=== PATIENT | male | born 1970 | race Caucasian/White ===

== ENCOUNTER → 2020-09-22 13:39 | Outpatient (CLI) | payer BC, SELFPAY ==
--- NOTE | ~2020-09-22 | XR_ITS ---
EXAMINATION: XR sacrum coccyx min 2V DATE: 09/22/2020 14:03 INDICATION: Chronic coccygeal pain. TECHNIQUE: 3 views of the sacrum and coccyx were obtained. COMPARISON: Lumbar spine radiographs 11/27/2011 FINDINGS: Bone alignment is normal. No fracture. There is mild osteoarthritis of the sacroiliac joint s characterized by tiny marginal osteophytes. IMPRESSION: 1. Mild osteoarthritis of the sacroiliac joints. Reviewed, dictated and finalized at location A.
== END ==
PROVIDERS: PCP Family Medicine
DX: M53.3 Sacrococcygeal disorders, not elsewhere classified (principal); M47.898 Other spondylosis, sacral and sacrococcygeal region
CPT/HCPCS: 72220

== ENCOUNTER → 2020-11-07 16:13 | Outpatient (CLI) | payer BC, SELFPAY ==
--- NOTE | ~2020-11-07 | XR_ITS ---
XR finger 1st LT min 2V DATE: 11/07/2020 16:25 INDICATION: Left thumb pain TECHNIQUE: 3 views COMPARISON: None FINDINGS: No fracture or dislocation, periosteal reaction or bone destruction. Joint spaces are prese rved. No erosive changes. IMPRESSION: Negative Reviewed, dictated and finalized at location A. GATION TEACHER IMPRESSION: Negative
== END ==
PROVIDERS: PCP Family Medicine; Visit Provider Family Medicine
DX: M79.645 Pain in left finger(s) (principal)
CPT/HCPCS: 73140

== ENCOUNTER 2021-08-22 07:03 | Day surgery (SDC) | payer BC, SELFPAY ==
[2021-08-22 07:19] VITALS: BMI 29.6
[2021-08-22 07:46] VITALS: BP 152/91; PULSE 68; RESP 16; TEMP 36.4; O2SAT 100; BMI 29.0
[2021-08-22] MEDS: LACTATED RINGERS 1,000 ML 150 ML IV CONT (07:54)
--- NOTE | 2021-08-22 07:59 | WPDANESEPPF ---
Anes - Initial Pre Proc Eval Procedure: Operation Date: 08/22/21 07:00 Proposed Procedures p Screening Colonoscopy - Ming Cameron MD Date/Time: 08/22/21 07:59 Surgeon: Ming Cameron MD Pre Op Diagnosis: NEOPLASM SCREENING Patient Data Age: 51 Gender: M Height: 1.8 m Weight: 94.3 kg Last Vital Signs Temp 36.4 C 08/22/21 07:46 Pulse 68 08/22/21 07:46 Resp 16 08/22/21 07:46 BP 152/91 H 08/22/21 07:46 Pulse Ox 100 08/22/21 07:46 Allergies Allergy/AdvReac Type Severity Reaction Status Date / Time No Known Allergies Allergy Mild Verified 08/22/21 07:42 Home Medications Medication Instructions Recorded Confirmed Type losartan 50 mg tablet 100 mg PO DAILY #180 tablet 04/23/21 08/22/21 Rx Patient hx anesthesia problems: none Family hx anesthesia problems: none PMFSH Past Medical History Medical History (Updated 08/22/21 @ 08:00 by Feroz Dennis MD) Essential hypertension IFG (impaired fasting glucose) PENNY (obstructive sleep apnea) Family History Family History Father Hypertension Family history of coronary artery disease Sibling Hypertension Mother Family history of malignant neoplasm of breast in first degree relative Social History Social History (Updated 07/23/21 @ 16:32 by Rachel Christensen) Smoking status: Never smoker Second hand tobacco smoke exposure: No Alcohol intake: never Substance use: never Substance use type: does not use Living arrangements: with family Gender identity (if verbalized by the patient): Male Sexual Orientation (if Verbalized by the Patient): Straight or Heterosexual Spiritual care concerns: No Anes - Eval Final PreProcedure Day of Procedure 08/22/21 07:59 Patient weight: normal Heart: regular rate and rhythm Lungs: clear to auscultation and normal air movement Airway: Mallampati scale class II Neurological: alert and oriented Last oral intake: >/= 8 hours ASA classification: II Emergent: no Anesthetic plan: proceed Anesthesia type and monitoring: general GIVS Informed Consent: The patient's anesthetic plan and its attendant risks and benefits were discussed with the patient/family/POA. Questions were solicited and answers provided to the satisfaction of the patient/family/POA.
--- NOTE | 2021-08-22 08:12 | PM.HPGS ---
History of Present Illness History of Present Illness Consent: Risks, benefits, and alternatives have been discussed and questions answered. Patient agrees to proceed with procedure. Chief complaint: NEOPLASM SCREENING Narrative: Gregg Soto is a 51 year old male here for first screeninc colonoscopy Review of Systems Constitutional: Constitutional: Denies headache(s) and Denies weakness Eyes: Eyes: Denies blurry vision ENT: Reports Normal hearing present, Denies headache(s) and Denies neck pain Cardiovascular: Cardiovascular: Denies chest pain and Denies dyspnea Respiratory: Respiratory: Denies dyspnea Gastrointestinal: Gastrointestinal: Reports no additional gastrointestinal complaints Genitourinary: Genitourinary: Denies dysuria Musculoskeletal: Musculoskeletal: Denies neck pain Integumentary/Breasts: Skin/Breast: Denies dry skin Neurologic: Reports Normal hearing present, Denies headache(s) and Denies weakness Psychiatric: Psychiatric: Denies anxiety Endocrine: Endocrine: Denies change in body appearance Hematologic/Lymphatic: Hematologic/Lymphatic: Denies easy bleeding Allergic/Immunologic: Allergic/Immunologic: Denies urticaria [facility] Past Medical History Medical History (Updated 08/22/21 @ 08:13 by Ming Cameron MD) Colon cancer screening Essential hypertension IFG (impaired fasting glucose) PENNY (obstructive sleep apnea) Family History Family History Father Hypertension Family history of coronary artery disease Sibling Hypertension Mother Family history of malignant neoplasm of breast in first degree relative Social History Social History (Updated 07/23/21 @ 16:32 by Rachel Christensen) Smoking status: Never smoker Second hand tobacco smoke exposure: No Alcohol intake: never Substance use: never Substance use type: does not use Living arrangements: with family Gender identity (if verbalized by the patient): Male Sexual Orientation (if Verbalized by the Patient): Straight or Heterosexual Spiritual care concerns: No Meds Home Medications and Allergies Home Medications Medication Instructions Recorded Confirmed Type losartan 50 mg tablet 100 mg PO DAILY #180 tablet 04/23/21 08/22/21 Rx Allergies Allergy/AdvReac Type Severity Reaction Status Date / Time No Known Allergies Allergy Mild Verified 08/22/21 07:42 Vital Signs Vital Signs - 24 hr 08/22/21 07:46 Temperature 97.6 F Pulse Rate 68 Respiratory Rate 16 Blood Pressure 152/91 H Pulse Oximetry 100 Exam Const: General: comfortable and no acute distress HENMT: General nose exam: Normal nares present Eyes: General: appearance normal, both eyes and all related structures Neck: Neck: no JVD Resp: Auscultation: clear to auscultation bilaterally Cardio: Rate: regular rate Rhythm: regular rhythm GI: Inspection: non-distended GI Palp: Yes Soft to palpation Skin: General skin exam: normal color Neuro: General: gait normal Speech: normal speech Extrem: General: normal to inspection Psych: Mental Status: mental status grossly normal Assessment and Plan Assessment and plan (1) Colon cancer screening: Code(s): Z12.11 - Encounter for screening for malignant neoplasm of colon Status: Acute Assessment and Plan: colonoscopy
[2021-08-22 08:36] VITALS: BP 114/67; PULSE 63; RESP 14; O2SAT 98
[2021-08-22 08:46] VITALS: BP 108/69; PULSE 61; RESP 20; O2SAT 99
[2021-08-22 08:56] VITALS: BP 131/82; PULSE 68; RESP 15; O2SAT 100
== END 2021-08-22 09:06 | disposition home or self-care (01) ==
PROVIDERS: PCP Family Medicine; Visit Provider Internal Medicine Gastroenterology
PROC: 0DJD8ZZ Inspection of Lower Intestinal Tract, Via Natural or Artificial Opening Endoscopic (ICD-10-PCS; CPT 45378; principal; 2021-08-22 07:00)
DX: Z12.11 Encounter for screening for malignant neoplasm of colon (principal); K64.8 Other hemorrhoids; I10 Essential (primary) hypertension; G47.33 Obstructive sleep apnea (adult) (pediatric)
CPT/HCPCS: 45378; J2704; J7120

== ENCOUNTER → 2022-08-30 14:22 | Outpatient (CLI) | payer BC, SELFPAY ==
--- NOTE | ~2022-08-30 | XR_ITS ---
XR knee LT 3V 08/30/2022 14:33 INDICATION: Left knee pain PROCEDURE: 3 views left knee COMPARISON: 03/13/2028 FINDINGS: Fracture, dislocation or subluxation is not identified. No significant joint effusion. The soft tissues appear within normal limits. No foreign bodies are identified. IMPRESSION: 1: No significant bone or joint abnormality. Reviewed, dictated and finalized at location B.
== END ==
PROVIDERS: PCP Family Medicine; Visit Provider Physician Assistant
DX: M25.562 Pain in left knee (principal)
CPT/HCPCS: 73562

== ENCOUNTER → 2022-09-26 16:07 | Outpatient (CLI) | payer BC, SELFPAY ==
--- NOTE | ~2022-09-26 | XR_ITS ---
XR_CERV2-3V_CR 09/26/2022 16:25 Indication: Neck pain Procedure: 3 views cervical spine Comparison: No prior studies for comparison. Findings: Normal cervical alignment. Vertebral body heights are maintained. No prevertebral soft tiss ue swelling. Lung apices are normal. Odontoid process is normal. Lung apices are normal. Impression: 1: No significant abnormality of the cervical spine. Reviewed, dictated and finalized at location B. Impression: 1: No significant abnormality of the cervical spine.
== END ==
PROVIDERS: PCP Family Medicine; Visit Provider Chiropractor
DX: M54.2 Cervicalgia (principal)
CPT/HCPCS: 72040

== ENCOUNTER 2024-11-18 16:39 | Emergency (ER) | payer BC, SELFPAY ==
--- NOTE | ~2024-11-18 | XR_ITS ---
EXAMINATION: XR chest 2V DATE: 11/18/2024 17:57 INDICATION: Chest pain. Shortness of breath. TECHNIQUE: Frontal and lateral views of the chest were obtained. COMPARISON: None. FINDINGS: There are airspace opacities at left lung base. No pleural effusion or pneumothorax. The he art size is normal. IMPRESSION: 1. Airspace opacities at left lung base, consistent with atelectasis versus pneumonia. Reviewed, dictated and finalized at location A. SAFETY ENGINEER IMPRESSION: 1. Airspace opacities at left lung base, consistent with atelectasis versus pne umonia.
[2024-11-18 16:40] VITALS: BP 190/92; PULSE 80; RESP 16; TEMP 36.4; O2SAT 98
--- NOTE | 2024-11-18 17:15 | PC.NURSE ---
Pt reporting L hand tingling.
--- NOTE | 2024-11-18 17:22 | ED_ITS ---
HPI - SOB/Dyspnea General Chief Complaint: Shortness of Breath/Dyspnea <CARL Mason Last Filed: 11/19/24 09:06> Stated Complaint: shortness of breath, nausea, heartburn <CARL Mason Last Filed: 11/19/24 09:06> Time Seen by Provider: 11/18/24 17:22 <CARL Mason Last Filed: 11/19/24 09:06> Focused HPI: Patient is a 54 y/o male who presents to the ED with c/o CP. Patient reports he was diagnosed with PNA on 11/06. Was Rx'd amoxicillin and azithromycin and finished these. Reports he felt better initially after the abx, but states over the last couple days he has begun feeling unwell again. C/o chills, lightheadedness, nausea, headache, shortness of breath. No known fever. States he had significant heartburn yesterday and was taking antacids which did improve sx's slightly, but sx's recurred today. Also developed L sided CP approx 30 minutes prior to arrival to the ED. Is still present. Denies previous heart issues. 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 GENERAL: Mildly ill and pale-appearing, obese with BMI of 33.5, and in no acute distress. HEAD: Normocephalic, atraumatic. CHEST: Clear to auscultation. ?No respiratory distress. HEART: Regular rate and rhythm.? MSK: No chest wall tenderness to palpation. NEURO: ?Alert and oriented x3. Patient screened in triage and initial orders placed.? ?Additional care and disposition to be based upon?diagnostic testing and treatment. <CARL Mason Last Filed: 11/19/24 09:06> Source: patient <CARL Mason Last Filed: 11/19/24 09:06> Mode of arrival: ambulatory <CARL Mason Last Filed: 11/19/24 09:06> Limitations: no limitations <CARL Mason Last Filed: 11/19/24 09:06> History of Present Illness HPI Narrative: I agree with the above HPI <Win Matthews MD - Last Filed: 11/19/24 12:38> Related Data Allergies/Adverse Reactions: Allergies Allergy/AdvReac Type Severity Reaction Status Date / Time No Known Allergies Allergy Mild Verified 11/16/24 15:00 <Ashley Brown PA-C - Last Filed: 11/19/24 09:06> Review of Systems 2 Review of Systems: All systems reviewed & are unremarkable except as noted in HPI and below <Win Matthews MD - Last Filed: 11/19/24 12:38> PMFSH Past Medical History Medical History: Medical History Colon cancer screening IFG (impaired fasting glucose) Essential hypertension PENNY (obstructive sleep apnea) <Ashley Brown PA-C - Last Filed: 11/19/24 09:06> Family History Family History: Family History Father Hypertension Family history of coronary artery disease Sibling Hypertension Mother Family history of malignant neoplasm of breast in first degree relative <Ashley Brown PA-C - Last Filed: 11/19/24 09:06> Social History Social History: Social History Smoking status: Never smoker Second hand tobacco smoke exposure: No Alcohol intake: never Substance use: never Substance use type: does not use Living arrangements: with family Occupation/Education: occupation Gender identity (if verbalized by the patient): Male Sexual Orientation (if Verbalized by the Patient): Straight or Heterosexual Spiritual care concerns: No <Ashley Brown PA-C - Last Filed: 11/19/24 09:06> Exam 2 Narrative: APPEARANCE: Well appearing, no pain, no distress, well-nourished. HEAD: normocephalic, atraumatic. EYES: PERRLA/EOMI, conjunctivae clear. NOSE: Normal no drainage EARS:TMS clear with good light reflex. THROAT: Pharynx clear, no exudate. NECK: Supple. No adenopathy, no masses. RESPIRATORY: Airway patent, respirations nonlabored. Clear to auscultation bilaterally, no rales, rhonchi, wheezing. CARDIOVASCULAR: Regular rate and rhythm without murmurs rubs or gallops. ABDOMINAL: Epigastric tenderness to palpation MUSCULOSKELETAL: Moves all extremities. Strength/ROM intact, No edema, No calf tenderness. NEURO: Alert. Cranial nerves II through XII intact. Good gait. Good coordination SKIN: Warm, dry. Normal Color <Win Matthews MD - Last Filed: 11/19/24 12:38> Course Vital Signs Vital signs: Vital Signs Temperature 97.6 F 11/18/24 16:40 Pulse Rate 80 11/18/24 16:40 Respiratory Rate 16 11/18/24 16:40 Blood Pressure 190/92 H 11/18/24 16:40 Pulse Oximetry 98 11/18/24 16:40 Oxygen Delivery Room Air 11/18/24 16:40 Temperature 97.6 F 11/18/24 16:40 Pulse Rate 80 11/18/24 19:38 Respiratory Rate 17 11/18/24 19:38 Blood Pressure 161/87 H 11/18/24 19:38 Pulse Oximetry 97 11/18/24 19:38 Oxygen Delivery Room Air 11/18/24 19:38 <Ashley Brown PA-C - Last Filed: 11/19/24 09:06> Vital Signs Temperature 97.6 F 11/18/24 16:40 Pulse Rate 80 11/18/24 16:40 Respiratory Rate 16 11/18/24 16:40 Blood Pressure 190/92 H 11/18/24 16:40 Pulse Oximetry 98 11/18/24 16:40 Oxygen Delivery Room Air 11/18/24 16:40 Temperature 97.6 F 11/18/24 16:40 Pulse Rate 80 11/18/24 19:38 Respiratory Rate 17 11/18/24 19:38 Blood Pressure 161/87 H 11/18/24 19:38 Pulse Oximetry 97 11/18/24 19:38 Oxygen Delivery Room Air 11/18/24 19:38 <Win Matthews MD - Last Filed: 11/19/24 12:38> MDM - SOB/Dyspnea MDM Narrative Medical decision making narrative: MSE by FRANSISCA in triage. <Ashley Brown PA-C - Last Filed: 11/19/24 09:06> MSE by FRANSISCA in triage. 54-year-old male presents emergency department for evaluation for epigastric pain. Patient's symptoms were improved with famotidine, pantoprazole and a GI cocktail. Patient had negative serial troponins and EKG showing normal sinus rhythm. Patient had no acute findings his chest x-ray. Patient was negative for influenza RSV and for COVID. Patient is afebrile but does have a leukocytosis of 10.2 and hemoglobin of 14.1. Patient had no acute abnormalities on his CMP. Patient's D-dimer was negative. <Win Matthews MD - Last Filed: 11/19/24 12:38> Differential Diagnosis Differential diagnosis: Likely other (ACS, atypical chest pain, gastritis, esophagitis) <Win Matthews MD - Last Filed: 11/19/24 12:38> Lab Data Attestation: I reviewed the patient's lab results. <Win Matthews MD - Last Filed: 11/19/24 12:38> Result diagrams: 11/18/24 17:46 11/18/24 17:46 <Ashley Brown PA-C - Last Filed: 11/19/24 09:06> Labs: Lab Results 11/18/24 11/18/24 Range/Units 17:46 20:49 WBC 10.2 H (4.5-10.0) K/mm3 RBC 5.11 (4.6-6.20) M/mm3 Hgb 14.1 (14.0-18.0) g/dL Hct 41.7 L (42.0-52.0) % MCV 81.6 (80-100) fl MCH 27.6 (26-34) pg MCHC 33.8 (32-36) g/dl RDW 14.0 (11.5-14.5) % Plt Count 276 (150-375) k/mm3 MPV 8.8 (7.4-10.4) fl Immature Gran % (Auto) 0.3 (0-0.5) % Neut % (Auto) 81.2 H (45.5-73.1) % Lymph % (Auto) 13.7 L (18.3-44.2) % Citrus % (Auto) 4.0 (2.6-8.5) % Eos % (Auto) 0.5 (0-4.4) % Baso % (Auto) 0.3 (0.2-1.2) % Lymph # (Auto) 1.40 (0.9-3.2) K/mm3 Citrus # (Auto) 0.4 (0.1-0.6) K/mm3 Eos # (Auto) 0.1 (0-0.3) K/mm3 Baso # (Auto) 0.0 (0.0-0.1) K/mm3 Abs Immat Gran (auto) 0.03 (0.00-0.031) K/mm3 Absolute Neuts (auto) 8.3 H (1.3-6.7) K/mm3 Absolute Nucleated RBC 0.000 (0.0-0.012) K/mm3 Nucleated RBC % 0.0 (0.0-0.2) % PT 13.5 (11.1-14.7) Seconds INR 1.0 APTT 26.1 (22.3-36.8) Seconds D-Dimer < 0.27 (<0.48) ug/mL Sodium 135 L (137-145) mmol/L Potassium 3.8 (3.4-5.0) mmol/L Chloride 101 (98-107) mmol/L Carbon Dioxide 28 (22-30) mmol/L Anion Gap 6 (4-12) mmol/L BUN 20 (9-20) mg/dL Creatinine 0.60 L (0.7-1.3) mg/dL Estim Creat Clear Calc 152 ml/min Estimated GFR > 60 (59 - ) Glucose 139 H (65-110) mg/dL Calcium 9.2 (8.4-10.2) mg/dL Total Bilirubin 0.6 (0.2-1.3) mg/dL AST 29 (17-59) U/L ALT 44 (6-50) U/L Alkaline Phosphatase 89 (38-126) U/L Troponin I < 0.012 < 0.012 (0.000-0.034) ng/mL NT-Pro-B Natriuret Pep 23 (19.9-100) pg/mL Total Protein 8.0 (6.3-8.2) g/dL Albumin 4.5 (3.5-5.1) g/dL Influenza A (RT-PCR) Negative (Negative) Influenza B (RT-PCR) Negative (Negative) RSV (RT-PCR) Negative (Negative) SARS-CoV-2 RNA (RT-PCR) Negative (Negative) <Ashley Brown PA-C - Last Filed: 11/19/24 09:06> Lab Results 11/18/24 11/18/24 Range/Units 17:46 20:49 WBC 10.2 H (4.5-10.0) K/mm3 RBC 5.11 (4.6-6.20) M/mm3 Hgb 14.1 (14.0-18.0) g/dL Hct 41.7 L (42.0-52.0) % MCV 81.6 (80-100) fl MCH 27.6 (26-34) pg MCHC 33.8 (32-36) g/dl RDW 14.0 (11.5-14.5) % Plt Count 276 (150-375) k/mm3 MPV 8.8 (7.4-10.4) fl Immature Gran % (Auto) 0.3 (0-0.5) % Neut % (Auto) 81.2 H (45.5-73.1) % Lymph % (Auto) 13.7 L (18.3-44.2) % Citrus % (Auto) 4.0 (2.6-8.5) % Eos % (Auto) 0.5 (0-4.4) % Baso % (Auto) 0.3 (0.2-1.2) % Lymph # (Auto) 1.40 (0.9-3.2) K/mm3 Citrus # (Auto) 0.4 (0.1-0.6) K/mm3 Eos # (Auto) 0.1 (0-0.3) K/mm3 Baso # (Auto) 0.0 (0.0-0.1) K/mm3 Abs Immat Gran (auto) 0.03 (0.00-0.031) K/mm3 Absolute Neuts (auto) 8.3 H (1.3-6.7) K/mm3 Absolute Nucleated RBC 0.000 (0.0-0.012) K/mm3 Nucleated RBC % 0.0 (0.0-0.2) % PT 13.5 (11.1-14.7) Seconds INR 1.0 APTT 26.1 (22.3-36.8) Seconds D-Dimer < 0.27 (<0.48) ug/mL Sodium 135 L (137-145) mmol/L Potassium 3.8 (3.4-5.0) mmol/L Chloride 101 (98-107) mmol/L Carbon Dioxide 28 (22-30) mmol/L Anion Gap 6 (4-12) mmol/L BUN 20 (9-20) mg/dL Creatinine 0.60 L (0.7-1.3) mg/dL Estim Creat Clear Calc 152 ml/min Estimated GFR > 60 (59 - ) Glucose 139 H (65-110) mg/dL Calcium 9.2 (8.4-10.2) mg/dL Total Bilirubin 0.6 (0.2-1.3) mg/dL AST 29 (17-59) U/L ALT 44 (6-50) U/L Alkaline Phosphatase 89 (38-126) U/L Troponin I < 0.012 < 0.012 (0.000-0.034) ng/mL NT-Pro-B Natriuret Pep 23 (19.9-100) pg/mL Total Protein 8.0 (6.3-8.2) g/dL Albumin 4.5 (3.5-5.1) g/dL Influenza A (RT-PCR) Negative (Negative) Influenza B (RT-PCR) Negative (Negative) RSV (RT-PCR) Negative (Negative) SARS-CoV-2 RNA (RT-PCR) Negative (Negative) <Win Matthews MD - Last Filed: 11/19/24 12:38> Discharge Plan Discharge Clinical Impression: Gastritis, Chest pain <Ashley Brown PA-C - Last Filed: 11/19/24 09:06> Patient Disposition: Home, Self-Care <Ashley Brown PA-C - Last Filed: 11/19/24 09:06> Condition: Stable <Ashley Brown PA-C - Last Filed: 11/19/24 09:06> Instructions: Antibiotic Form, Diet for Stomach Ulcers and Gastritis (ED) <Ashley Brown PA-C - Last Filed: 11/19/24 09:06> Additional Instructions: Avoid alcohol, NSAIDs and follow a bland diet for the next 14 days. Take omeprazole daily for the next 14 days. Maalox as needed intermittently for abdominal pain. Have close follow-up with your primary care physician for additional outpatient cardiac testing. Have close follow-up with GI for endoscopy and further evaluation of your gastritis. If you have any worsening symptoms then please call or return to the emergency department <Ashley Brown PA-C - Last Filed: 11/19/24 09:06> Patient Language: Haitian <Ashley Brown PA-C - Last Filed: 11/19/24 09:06> Prescriptions: New omeprazole magnesium [Prilosec OTC] 20 mg tablet,delayed release (DR/EC) 20 mg PO DAILY 14 Days Qty: 14 0RF No Action losartan 100 mg tablet 100 mg PO DAILY Qty: 90 1RF <CARL Mason Last Filed: 11/19/24 09:06> Follow-up/Referrals: Luis Enrique Fuller MD [Primary Care Provider] - Ming Cameron MD [Physician] - <Ashley Brown PA-C - Last Filed: 11/19/24 09:06> Quality HEART score for chest pain patients History: slightly suspicious <Win Matthews MD - Last Filed: 11/19/24 12:38> ECG: normal <Win Matthews MD - Last Filed: 11/19/24 12:38> Age: < or = to 45 years <Win Matthews MD - Last Filed: 11/19/24 12:38> Risk factors: 1 or 2 risk factors <Win Matthews MD - Last Filed: 11/19/24 12:38> Troponin: < or = to 1x normal limit <Win Matthews MD - Last Filed: 11/19/24 12:38> Heart score: 1 <Win Matthews MD - Last Filed: 11/19/24 12:38>
--- NOTE | 2024-11-18 17:22 | ECG_ITS ---
Test Date: 2024-11-18 17:36:21 Measurements Intervals [place] Rate: 77 P: 48 WV: 161 QRS: 14 QRSD: 132 T: 8 QT: 373 QTc: 422 Interpretive Statements SINUS RHYTHM INTRAVENTRICULAR CONDUCTION DELAY [130+ ms QRS DURATION] No previous ECG available for comparison Electronically Signed On 11-19-2024 12:08:10 CADDIE by Lee Hunter M.D.
[2024-11-18] MEDS: ONDANSETRON INJ 4 MG/2 ML VIAL IV PUSH ×2 (17:49→22:08)
[2024-11-18 17:51] LABS: Basophils Percent Auto 0.3 % (0.2-1.2); Eosinophils Absolute Auto 0.1 K/mm3 (0-0.3); Eosinophils Percent Auto 0.5 % (0-4.4); Hematocrit 41.7 % (42.0-52.0); Hemoglobin 14.1 g/dL (14.0-18.0); Immature Granulocyte Absolute 0.03 K/mm3 (0.00-0.031); Immature Granulocyte Percent A 0.3 % (0-0.5); Lymphocytes Percent Auto 13.7 % (18.3-44.2); Mean Corpuscular HGB Conc 33.8 g/dl (32-36); Mean Corpuscular Hemoglobin 27.6 pg (26-34); Mean Corpuscular Volume 81.6 fl (80-100); Mean Platelet Volume 8.8 fl (7.4-10.4); Monocytes Absolute Auto 0.4 K/mm3 (0.1-0.6); Neutrophils Absolute Auto 8.3 K/mm3 (1.3-6.7); Neutrophils Percent Auto 81.2 % (45.5-73.1); Platelet Count Result 276 k/mm3 (150-375); Red Blood Count 5.11 M/mm3 (4.6-6.20); White Blood Count 10.2 K/mm3 (4.5-10.0)
[2024-11-18 18:01] LABS: Alanine Aminotransferase 44 U/L (6-50); Albumin Level 4.5 g/dL (3.5-5.1); Alkaline Phosphatase 89 U/L (38-126); Anion Gap 6 mmol/L (4-12); Aspartate Amino Transferase 29 U/L (17-59); Bilirubin,Total 0.6 mg/dL (0.2-1.3); Blood Urea Nitrogen 20 mg/dL (9-20); Calcium 9.2 mg/dL (8.4-10.2); Carbon Dioxide 28 mmol/L (22-30); Chloride 101 mmol/L (98-107); Estimated CRCL calculation 152 ml/min; Estimated Glomerular Filt Rate > 60; Glucose 139 mg/dL (65-110); Potassium 3.8 mmol/L (3.4-5.0); Sodium 135 mmol/L (137-145)
[2024-11-18 18:07] LABS: Prothrombin Time 13.5 Seconds (11.1-14.7)
[2024-11-18 18:08] LABS: Partial Thromboplastin Time 26.1 Seconds (22.3-36.8)
[2024-11-18 18:10] LABS: D Dimer < 0.27 ug/mL (<0.48)
[2024-11-18 18:12] LABS: NT Pro B Type Natriuretic Pept 23 pg/mL (19.9-100); Troponin I < 0.012 ng/mL (0.000-0.034)
[2024-11-18 18:28] LABS: Influenza A QL RT-PCR Negative (Negative); Influenza B QL RT-PCR Negative (Negative); RSV RNA, RT-PCR Negative (Negative); SARS-CoV-2 RNA PCR Negative (Negative)
[2024-11-18] MEDS: SODIUM CHLORIDE 0.9% IV 1,000 ML 999 ML IV CONT (19:16)
[2024-11-18 19:38] VITALS: BP 161/87; PULSE 80; RESP 17; O2SAT 97
[2024-11-18] MEDS: FAMOTIDINE 20 MG/2 ML VIAL IV PUSH (20:10)
[2024-11-18] MEDS: PANTOPRAZOLE SODIUM IV 40 MG VIAL IV PUSH (20:10)
[2024-11-18] MEDS: BELLADONNA ALK/PHENOB ELIX 10 ML, MAG HYDROX/ALUMINUM HYD/SIMETH 30 ML, LIDOCAINE 2% VI... PO (20:10)
--- NOTE | 2024-11-18 20:48 | ECG_ITS ---
Test Date: 2024-11-18 20:50:08 Measurements Intervals [place] Rate: 78 P: 26 DE: 178 QRS: -1 QRSD: 112 T: -2 QT: 378 QTc: 432 Interpretive Statements SINUS RHYTHM INCOMPLETE RIGHT BUNDLE BRANCH BLOCK [90+ ms QRS DURATION, TERMINAL R IN V1/V2, 40+ ms S IN I/aVL/V4/V5/V6] Compared to ECG 11/18/2024 17:36:21 Incomplete right bundle-branch block now present Electronically Signed On 11-19-2024 12:09:48 [employer]OR SPECIALIST by Lee Hunter M.D.
[2024-11-18 21:15] LABS: Troponin I < 0.012 ng/mL (0.000-0.034)
== END 2024-11-18 22:46 | disposition home or self-care (01) ==
PROVIDERS: Physician Assistant; Emergency Provider Emergency Medicine; PCP Family Medicine
DX: K29.70 Gastritis, unspecified, without bleeding (principal); R07.9 Chest pain, unspecified; Z20.822 Contact with and (suspected) exposure to COVID-19; I10 Essential (primary) hypertension; G47.30 Sleep apnea, unspecified
CPT/HCPCS: 36415; 71046; 80053; 83880; 84484; 85025; 85380; 85610; 85730; 87637; 93005; 96361; 96374; 96375; 96376; 99284; A9270; J2405; J2470; J7030

== ENCOUNTER 2025-09-27 09:16 | Outpatient (CLI) | payer BC, SELFPAY ==
--- NOTE | ~2025-09-27 | US_ITS ---
Clinical history:Swelling, mass along the right lateral leg. EXAM:Ultrasound soft tissue lower extremity right TECHNIQUE:Multiple static grayscale images and color Doppler images were obtained of the area concern along the right lower leg Comparisons:None available FINDINGS: There is an indeterminate 1.7 x 0.6 x 1.0 cm heterogeneous masslike structure in the area of palpable concern along the right lower leg laterally. No internal color Doppler flow. The finding is wider than tall. Margins are indistinct. There is posterior acoustic shadowing. IMPRESSION: 1.There is an indeterminate 1.7 x 0.6 x 1.0 cm heterogeneous masslike structure in the area of palpable concern along the right lower leg laterally. Differential includes but is not limited to inflammatory/infectious process, resolving hematoma or mass. Recommend follow-up to resolution. Consider an MRI with and without contrast for further assessment. Reviewed, dictated and finalized at location Q. IMPRESSION: 1.There is an indeterminate 1.7 x 0.6 x 1.0 cm heterogeneous masslike structure in the area of palpable concern along the right lower leg laterally. Different ial includes but is not limited to inflammatory/infectious process, resolving h ematoma or mass. Recommend follow-up to resolution. Consider an MRI with and wi thout contrast for further assessment.
== END 2025-09-27 09:17 | disposition home or self-care (01) ==
LOC: MICIMG 09:16
PROVIDERS: PCP Family Medicine; Visit Provider Physician Assistant
DX: R22.41 Localized swelling, mass and lump, right lower limb (principal)
CPT/HCPCS: 76882

== ENCOUNTER 2025-11-10 15:51 | Outpatient (CLI) | payer BC, SELFPAY ==
--- NOTE | ~2025-11-10 | MR_ITS ---
EXAMINATION: MR lower leg RT wo/w con DATE: 11/10/2025 16:43 INDICATION: Localized swelling, mass or lump at the right lower limb. Lateral sided pain at the right knee. TECHNIQUE: Magnetic resonance imaging (MRI) of the right lower leg was performed without and with 20 mL Multihance intravenous contrast. A marker was placed over the mass. Sequences included axial, sagittal and coronal T1-weighted FSE and fluid sensitive FSE STIR. Precontrast axial T1-weighted FS FSE and post contrast axial and coronal T1-weighted FS FSE were also obtained. The contralateral left lower leg is included on the coronal images. COMPARISON: Ultrasound dated 09/27/2025 FINDINGS: T2 hyperintense subarticular cystlike change versus small erosions at both sides of the left proximal tibiofibular articulation included only on the coronal images. Bone marrow signal is otherwise normal throughout with no gallbladder reactive edema, fracture or pathologic marrow replacing process. There is a 14 x 7 x 5 mm cystic lesion along the anterolateral margin of the proximal head of the right fibula without evident enhancement which appears to represent a small ganglion cyst arising from the proximal right tibiofibular articulation. Normal and symmetric muscle bulk and signal throughout both calves. No abnormally enhancing lesions identified. No knee joint effusions or other abnormal fluid collections. IMPRESSION: 1. 14 x 7 x 5 mm likely ganglion cyst arising from the right proximal tibiofibular articulation and position along the anterolateral margin of the head of the fibula which appears to correspond to the lesion of concern on prior ultrasound. No soft tissue masses or other abnormally enhancing lesions quinton ntified. Reviewed, dictated and finalized at location A. L TENDER IMPRESSION: 1. 14 x 7 x 5 mm likely ganglion cyst arising from the right proximal tibiofibu lar articulation and position along the anterolateral margin of the head of the fibula which appears to correspond to the lesion of concern on prior ultrasoun d. No soft tissue masses or other abnormally enhancing lesions identified.
== END 2025-11-10 15:52 | disposition home or self-care (01) ==
PROVIDERS: PCP Family Medicine; Visit Provider Physician Assistant
DX: R22.41 Localized swelling, mass and lump, right lower limb (principal)
CPT/HCPCS: 73720; A9577